=== PATIENT | female | born 1960 | race African-American/Black ===

== ENCOUNTER 2017-01-01 18:35 | Emergency (ER) | payer MEDICARE, OTHER ==
[~2017-01-01] VITALS: Ht 162.6 cm; Wt 95.3 kg
[2017-01-01 18:51] VITALS: BP 113/80
[2017-01-01] MEDS ORDERED: DiphenhydrAMINE 25mg/10ml Elixir ORAL ONE (19:00)
[2017-01-01] MEDS ORDERED: PredniSONE 20mg tab ORAL ONE (19:00)
[2017-01-01] MEDS ORDERED: PREDNISONE20 MG ORAL (19:50)
[2017-01-01] MEDS ORDERED: EPIPEN 2-P0.3 MG/0.3 IM (19:50)
[2017-01-01 20:10] VITALS: BP 113/80
--- NOTE | 2017-01-01 22:05 | Emergency Room Report ---
History of Present Illness General Chief Complaint: Allergic Reaction Source: Patient, EMS Present Illness HPI Patient 56-year-old female presented after increased rash to her trunk and upper extremities. The patient stated that she had a right eaten valentin eggs and had prior history of allergic reactions to eggs. She denied any fever. She reported having a generalized itchiness. She denied shortness of breath. Patient had previous prescription for EpiPen but did not use it.Patient gradual onset of symptoms in the past 2 days and a taken Benadryl by mouth Allergies: Coded Allergies: EGG (Unverified Allergy, Severe, Rash, 01/01/17) SHELLFISH DERIVED (Unverified Allergy, Severe, 01/01/17) Patient History Past Medical History: see triage record Last Menstrual Period: na Reviewed Nursing Documentation: PMH: Agreed, PSxH: Agreed Nursing Documentation-PMH Past Medical History: No History, Except For Hx Seizures: Yes Review of Systems All Other Systems: negative except mentioned in HPI Physical Exam Vital Signs Date Time Temp Pulse Resp B/P Pulse Ox O2 Delivery O2 Flow Rate FiO2 01/01/17 18:27 97.9 100 22 113/80 98 Room Air General Appearance: well appearing, no apparent distress, alert, GCS 15 Head: normocephalic, atraumatic ENT: hearing grossly normal, normal voice Neck: full range of motion, supple Respiratory: no respiratory distress, speaking full sentences Musculoskeletal: normal inspection, no calf tenderness Neurologic: normal inspection, alert, oriented x3, responsive, normal gait Psychiatric: mood/affect normal Skin: other - left upper trunk urticaria Medical Decision Making Diagnostic Impression: Primary Impression: Allergic reaction ER Course Patient presented for skin rash. Differential diagnosis included was not limited to Campoverde-Abner syndrome, urticaria, erythema multiforme, contact dermatitis. Patient's benign exam and does not appear to require any further imaging or laboratory testing at this time. Patient given oral prednisone. Patient appears to have a allergic reaction. The patient was given prescription for prednisone as well as EpiPen. She is advised followup with her primary care physician for reexamination in the next few days Last Vital Signs Date Time Temp Pulse Resp B/P Pulse Ox O2 Delivery O2 Flow Rate FiO2 01/01/17 20:10 97.9 98 22 113/80 98 Room Air Status: improved Disposition: HOME, SELF-CARE Condition: Stable Scripts Prednisone* (PREDNISONE*) 20 Mg Tablet 40 MG ORAL DAILY, #10 TAB Prov: Reese Salas 01/01/17 Epinephrine (Epipen 2-Jovon) 0.3 Mg/0.3 Ml Auto.injct 0.3 MG IM ONCE, #1 EA Prov: Reese Salas 01/01/17 Patient Instructions: Allergies Reese Salas Jan 01, 2017 22:05
== END 2017-01-01 20:10 | disposition home or self-care (01) ==
LOC: EDBD 18:35 → EMR 19:14
DX: T78.40XA Allergy, unspecified, initial encounter (principal); X58.XXXA Exposure to other specified factors, initial encounter; R21 Rash and other nonspecific skin eruption; Z91.012 Allergy to eggs; Z91.013 Allergy to seafood
CPT/HCPCS: 99284

== ENCOUNTER 2017-02-27 09:26 | Emergency (ER) | payer MEDICARE, OTHER ==
[~2017-02-27] VITALS: Ht 162.6 cm; Wt 74.8 kg
[~2017-02-27 09:26] MED LIST: EPIPEN 2-P0.3 MG/0.3 IM; PREDNISONE20 MG ORAL
[2017-02-27 09:39] VITALS: BP 125/87
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
[2017-02-27] MEDS ORDERED: Norco 10mg/325mg tab ORAL ONE (09:45)
[2017-02-27] MEDS ORDERED: Ketorolac 60mg Inj IM ONE (09:45)
[2017-02-27 10:40] VITALS: BP 132/82
[2017-02-27] MEDS ORDERED: ROBAXIN-750750 MG PO (11:31)
--- NOTE | 2017-02-27 11:38 | Diagnostic Imaging Report ---
Indication: Pain Comparison: None Technique: Contiguous helical CT images through the cervical spine was obtained. CT Dose: Total DLP: 364 mGycm; Total CTDI volume 17.2 Findings: There is normal alignment of the cervical spine. No acute fractures or subluxations. There is hardware fixation at C5-6 with plate and screws. Prosthetic intervertebral disc spacer and laminectomy is also noted at C5-6. Degenerative changes as evidenced by disc space narrowing and anterior marginal osteophytes are seen about the cervical spine. Bilateral bony neural foraminal narrowing is noted at C3. There is an old fracture involving the anterior arch of C1 with no significant displacement. Odontoid is intact. Prevertebral soft tissues are normal. Impression: No acute fracture or subluxation of the cervical spine. Evidence of prior hardware fixation and laminectomy at C5-6. Moderate degenerative changes throughout the cervical spine. Old fracture of the arch of C1.
[2017-02-27 11:40] VITALS: BP 131/76
== END 2017-02-27 11:40 | disposition home or self-care (01) ==
LOC: EDBD 09:26 → EMR 10:06
DX: S16.1XXA Strain of muscle, fascia and tendon at neck level, initial encounter (principal); X58.XXXA Exposure to other specified factors, initial encounter; Y99.9 Unspecified external cause status; Z86.69 Personal history of other diseases of the nervous system and sense organs; M47.892 Other spondylosis, cervical region; Z91.012 Allergy to eggs; Z91.013 Allergy to seafood
CPT/HCPCS: 72125; 96372; 99284

== ENCOUNTER 2018-08-09 23:43 | Emergency (ER) | payer MEDICARE, OTHER ==
[~2018-08-09] VITALS: Ht 165.1 cm; Wt 81.6 kg
[~2018-08-09 23:43] MED LIST changes: +ROBAXIN-750750 MG PO
[2018-08-09 23:50] VITALS: BP 150/80
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
--- NOTE | 2018-08-10 01:00 | NUR ---
ED Nurse Note: pt still complaining of 02/16 pain on the neck. painful when changing position. will continue to monitor.
[2018-08-10] MEDS ORDERED: Morphine Sulfate 4mg/ml Inj (IV USE ONLY) ONE (01:37)
[2018-08-10] MEDS ORDERED: Ketorolac 30mg Inj ONE (01:37)
--- NOTE | 2018-08-10 02:00 | NUR ---
ED Nurse Note: Recieved report from Laurie COLON. Patient reports 9/10 pain.
--- NOTE | 2018-08-10 02:00 | NUR ---
ED Nurse Note: report given to monico rn, pt is complaining of pain on the neck and headache. 02/07
--- NOTE | 2018-08-10 02:10 | NUR ---
ED Nurse Note: Patient taken for CT.
--- NOTE | 2018-08-10 02:22 | NUR ---
ED Nurse Note: Patient returned from CT.
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
[2018-08-10 04:14] LABS: HEMOGLOBIN 15.9 G/DL (12.0-16.0); MEAN CORPUSCULAR VOLUME 93 FL (80-99); PLATELET COUNT 240 K/UL (150-450); RED BLOOD COUNT 5.36 M/UL (4.20-5.40); RED CELL DISTRIBUTION WIDTH 12.3 % (11.6-14.8); WHITE BLOOD COUNT 7.2 K/UL (4.8-10.8)
[2018-08-10 04:16] LABS: INR 0.9 (0.9-1.1)
[2018-08-10 04:17] LABS: ANION GAP 8 mmol/L (5-15); CARBON DIOXIDE 29 MMOL/L (21-32); CHLORIDE 101 MMOL/L (98-107); POTASSIUM 4.3 MMOL/L (3.5-5.1); SODIUM 138 MMOL/L (136-145)
[2018-08-10 04:18] LABS: ALANINE AMINOTRANSFERASE 39 U/L (12-78); ALBUMIN 3.7 G/DL (3.4-5.0); ALBUMIN/GLOBULIN RATIO 0.7 (1.0-2.7); ALKALINE PHOSPHATASE 124 U/L (46-116); ASPARTATE AMINO TRANSFERASE 55 U/L (15-37); BILIRUBIN,TOTAL 0.2 MG/DL (0.2-1.0); BLOOD UREA NITROGEN 13 mg/dL (7-18); CALCIUM 9.9 MG/DL (8.5-10.1); CREATININE 0.8 MG/DL (0.55-1.30)
[2018-08-10 04:31] LABS: BASOPHILS % (AUTO) 1.5 % (0.0-2.0); EOSINOPHILS % (AUTO) 2.2 % (0.0-3.0); LYMPHOCYTES % (AUTO) 32.3 % (20.0-45.0)
[2018-08-10] MEDS ORDERED: HYDROcodone/Acetamin 5/325 tab ORAL ONE (05:15)
[2018-08-10] MEDS ORDERED: HYDROcodone/Acetamin 5/325 tab ONE (05:18)
--- NOTE | 2018-08-10 05:20 | NUR ---
ED Nurse Note: Patient is resting on gurney, in a C-Collar, connected to case monitor, VSS, no s/s of acute distress noted at this time.
[2018-08-10 05:36] VITALS: BP 134/107
[2018-08-10] MEDS ORDERED: Dexamethasone 4mg/ml vial IVP ONE (06:00)
--- NOTE | 2018-08-10 06:44 | NUR ---
ED Nurse Note: [phone]
[2018-08-10 07:09] VITALS: BP 134/107
--- NOTE | 2018-08-10 07:09 | NUR ---
ED Nurse Note: Patient being transferred to [facility]. Patient transferred by 911. Patient AOx4, VSS, no s/s of acute distress noted at this time. Patient sent with all personal belongings. Patient report given to Nate COLON at [facility].
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
== END 2018-08-10 07:11 | disposition short-term general hospital (02) ==
LOC: EDBD 23:43 → EDUNIT# 23:43 → EMR 23:55
DX: S06.5X0A Traumatic subdural hemorrhage without loss of consciousness, initial encounter (principal); S12.100A Unspecified displaced fracture of second cervical vertebra, initial encounter for closed fracture; V43.52XA Car driver injured in collision with other type car in traffic accident, initial encounter; Y92.410 Unspecified street and highway as the place of occurrence of the external cause; Z98.1 Arthrodesis status; E11.9 Type 2 diabetes mellitus without complications; J32.3 Chronic sphenoidal sinusitis; Z91.012 Allergy to eggs; Z91.013 Allergy to seafood
CPT/HCPCS: 36415; 70450; 72125; 80053; 85025; 85610; 85730; 96374; 99284; J1885; J2270; J2405